=== PATIENT | female | born 1940 | race Two or more races ===

== ENCOUNTER 2024-12-12 10:19 | Inpatient (IN) | payer OTHER ==
[~2024-12-12] VITALS: Ht 147.3 cm; Wt 80.4 kg
--- NOTE | 2024-12-12 10:41 | ED.PDOC ---
History of Present Illness HPI Comments 84-year-old female with PMHx HTN, HLD, DM, Asthma brought in by EMS presents with a chief complaint of chest pain and SOB. Patient was at the [facility] seeing her doctor for follow-up on a bone density scan and had mentioned that she normally gets left sided chest pain once in awhile. EMS reports that the doctor panicked and called 911. Patient mentions that she feels exactly at her baseline and is not having chest pain at this time. Patient also reports that sometimes she gets abdomen pain from constipation. 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 History: Denies all ROOF PLUMBER Hx Family History Family History: Reviewed,noncontributory to illness Social History Smoker: Non-Smoker Alcohol: Denies ETOH Use Drugs: Denies Drug Use Lives In: Home Constitutional: denies: chills, diaphoresis, fatigue, fever, malaise, sweats, weakness, others EENTM: denies: blurred vision, double vision, ear bleeding, ear discharge, ear drainage, ear pain, ear ringing, eye pain, eye redness, hearing loss, mouth pain, mouth swelling, nasal discharge, nose bleeding, nose congestion, nose pain, photophobia, tearing, throat pain, throat swelling, voice changes, others Respiratory: reports: shortness of breath; denies: cough, hemoptysis, orthopnea, SOB at rest, SOB with excertion, stridor, wheezing, others Cardiovascular: reports: chest pain; denies: dizzy spells, diaphoresis, Dyspnea on exertion, edema, irregular heart beat, left arm pain, lightheadedness, palpitations, PND, syncope, others Gastrointestinal: reports: constipated; denies: abdomen distended, abdominal pain, blood streaked bowels, diarrhea, dysphagia, difficulty swallowing, hematemesis, melena, nausea, poor appetite, poor fluid intake, rectal bleeding, rectal pain, vomiting, others Genitourinary: denies: abnormal vagina bleeding, burning, dyspareunia, dysuria, flank pain, frequency, hematuria, incontinence, pain, , vagina discharge, urgency, others Neurological: denies: dizziness, fainting, headache, left sided numbness, left sided weakness, numbness, paresthesia, pre-existing deficit, right sided numbness, right sided weakness, seizure, speech problems, tingling, tremors, weakness, others Musculoskeletal: denies: back pain, gout, joint pain, joint swelling, muscle pain, muscle stiffness, neck pain, others Integumetry: denies: bruises, change in color, change in hair/nails, dryness, laceration, lesions, lumps, rash, wounds, others Allergic/Immunocompromised: denies: Difficulty Healing, Frequent Infections, Hives, Itching, others Hematologic/Lymphatic: denies: anemia, blood clots, easy bleeding, easy bruising, swollen glands, others Endocrine: denies: excessive hunger, excessive sweating, excessive thirst, excessive urination, flushing, intolerance to cold, intolerance to heat, unexplained weight gain, unexplained weight loss, others Psychiatric: denies: anxiety, bipolar disorder, depression, hopeless, panic disorder, schizophrenia, sleepless, suicidal, others All Other Systems: Reviewed and Negative Physical Exam General Appearance: Moderate Distress HEENT: Normal ENT Inspection, Pharynx Normal, TMs Normal Neck: Full Range of Motion, Non-Tender, Normal, Normal Inspection Respiratory: Chest Non-Tender, Decreased Breath Sounds, No Accessory Muscle Use, Wheezing Cardiovascular: No Edema, No JVD, No Murmur, No Gallop, Normal Peripheral Pulses, Regular Rate/Rhythm Breast Exam: Deferred Gastrointestinal: No Organomegaly, Non Tender, No Pulsatile Mass, Normal Bowel Sounds, Soft Genitalia: Deferred Pelvic: Deferred Rectal: Deferred Extremities: No calf tenderness, Normal capillary refill, Normal inspection, Normal range of motion, Non-tender, No pedal edema Musculoskeletal : Apperance: Normal Neurologic: Alert, flat bed knitter II-XII nml as Tested, No Motor Deficits, Normal Affect, Normal Mood, No Sensory Deficits Cerebellar Function: Normal Reflexes: Normal Skin: Dry, Normal Color, Warm Lymphatic: No Adenopathy Was a procedure done? Was a procedure done?: No EKG EKG : Pulse Rate (adult): 69 [place]: Normal Cardiac Rhythm: NSR Block: None ST: Nonsp Differential Dx Considerations may include: ACS, KS, generalized weakness, asthma, dehydration X-Ray, Labs, Meds, VS Vital Signs Date Time Temp Pulse Resp B/P (MAP) Pulse Ox O2 Delivery O2 Flow Rate FiO2 12/12/24 16:07 98.4 79 16 126/63 (84) 96 98.4 12/12/24 16:07 79 16 96 Room Air 12/12/24 14:01 69 12/12/24 13:58 80 12/12/24 11:54 89 12/12/24 10:56 18 95 Room Air* 0 21 12/12/24 10:45 Room Air* 0 21 12/12/24 10:20 69 12/12/24 10:19 98.2 92 18 138/88 (105) 100 98.2 Lab Test 12/12/24 14:04 12/12/24 12:00 12/12/24 10:45 Range/Units Troponin I High Sensitivity < 3 L 3 L < 3 L </=34 ng/L White Blood Count 8.1 4.4-10.8 10^3/uL Red Blood Count 4.32 4.0-5.20 10^6/uL Hemoglobin 12.3 12.2-16.2 g/dL Hematocrit 37.1 36.0-46.0 % Mean Corpuscular Volume 85.9 80.0-100.0 fL Mean Corpuscular Hemoglobin 28.5 28.0-32.0 pg Mean Corpuscular Hemoglobin Concent 33.2 32.0-36.0 g/dL Red Cell Distribution Width 16.0 H 11.8-14.3 % Platelet Count 341 140-450 10^3/uL Mean Platelet Volume 7.1 6.9-10.8 fL Neutrophils (%) (Auto) 64.7 37.0-80.0 % Lymphocytes (%) (Auto) 26.0 10.0-50.0 % Monocytes (%) (Auto) 5.7 0.0-12.0 % Eosinophils (%) (Auto) 2.5 0.0-7.0 % Basophils (%) (Auto) 1.1 0.0-2.0 % Neutrophils # (Auto) 5.3 1.6-8.6 10 ^3/uL Lymphocytes # (Auto) 2.1 0.4-5.4 10 ^3/uL Monocytes # (Auto) 0.5 0-1.3 10 ^3/uL Eosinophils # (Auto) 0.2 0-0.8 10 ^3/uL Basophils # (Auto) 0.1 0-0.2 10 ^3/uL Nucleated Red Blood Cells 0.0 % Sodium Level 140 136-145 mmol/L Potassium Level 3.6 3.5-5.1 mmol/L Chloride Level 106 98-107 mmol/L Carbon Dioxide Level 27 20-31 mmol/L Anion Gap 7 5-15 Blood Urea Nitrogen 22 9-23 mg/dL Creatinine 0.64 0.550-1.02 mg/dL Glomerular Filtration Rate Calc 88 >90 mL/min BUN/Creatinine Ratio 34.4 H 10.0-20.0 Serum Glucose 109 H 74-106 mg/dL Calcium Level 9.9 8.7-10.4 mg/dL B-Type Natriuretic Peptide 38.71 0-100 pg/mL Current Medications Medications (Trade) Dose Ordered Sig/Isaiah Route Start Time Stop Time Status Last Admin Methylprednisolone Sodium Succinate (Solu Medrol) 125 mg ONCE ONCE IV 12/12/24 10:45 12/12/24 10:46 DC 12/12/24 10:56 Ipratropium [place] (Atrovent Medneb) 1 mg ONCE ONCE [facility] 12/12/24 10:45 12/12/24 10:46 DC 12/12/24 10:56 Albuterol (Ventolin Medneb) 10 mg ONCE ONCE [facility] 12/12/24 10:45 12/12/24 10:46 DC 12/12/24 10:56 The patient was given a breathing treatment of albuterol and Atrovent for the wheezing. The patient does have a history of asthma The patient was also given Solu-Medrol 125 mg IV push The patient's BNP is within normal range. The patient's CBC is within normal range The chemistry panel is within normal range The troponin level x2 is negative At this time, we did contact [facility] authorization #[id number] We did speak to [facility] and they have now authorize the patient to be admitted to our facility We have discussed the findings with the patient and she is in agreement with the management A cardiology consult will be obtained. Images Reviewed?: Images reviewed and evaluated by me Time of 1ST Reevaluation: 11:02 Reevaluation 1ST: Unchanged Patient Education/Counseling: Diagnosis, Treatment, Prognosis Family Education/Counseling: No Family Present Departure 1 Departure Time of Disposition: 18:06 Impression: Primary Impression: Acute coronary syndrome Additional Impression: Asthma exacerbation Qualified Codes: J45.41 - Moderate persistent asthma with (acute) exacerbation Disposition: 09 ADMITTED INPATIENT Admit to: Tele Condition: Fair Critical Care Note Critical Care Time?: Yes (45 min-critical care time only) Stability Stability form required: Yes Unstable for transfer: Telemetry monitoring (Telemetry monitoring required), ED Physician Assesment Heart Score Heart Score: Heart Score Response (Comments) Value History Moderate Suspicious 1 EKG Repolarization Disturb 1 Age >65 2 Risk Factors >3 or Hx ASHD 2 Troponin Normal limit 0 Total 6 I personally scribed for FORD CAMEJO MD ([email or web address]) on 12/12/24 at 10:41. Electronically submitted by Shon Jean Baptiste [email or web address]). FORD CAMEJO MD December 12, 2024 10:41
[2024-12-12] MEDS: ASPirin 81 mg TAB PO ONE (10:54)
[2024-12-12] MEDS: IPRATROPIUM BROM 0.5 MG/2.5ML INH SOL HHN ONE (10:56)
[2024-12-12] MEDS: methylPREDNISolone SOD SUCC 125 MG/2 ML VL IV ONE (10:56)
[2024-12-12] MEDS: ALBUTEROL SULF 2.5 MG/0.5ML(0.5%) NEB SOLN HHN ONE (10:56)
[2024-12-12 11:02] LABS: Basophils # (auto) 0.1 10 ^3/uL (0-0.2); Basophils % (auto) 1.1 % (0.0-2.0); Eosinophils # (auto) 0.2 10 ^3/uL (0-0.8); Eosinophils % (auto) 2.5 % (0.0-7.0); Hematocrit 37.1 % (36.0-46.0); Hemoglobin 12.3 g/dL (12.2-16.2); Lymphocytes # (auto) 2.1 10 ^3/uL (0.4-5.4); Mean Corpuscular Hemoglobin 28.5 pg (28.0-32.0); Mean Corpuscular Hgb Conc. 33.2 g/dL (32.0-36.0); Mean Corpuscular Volume 85.9 fL (80.0-100.0); Monocytes # (auto) 0.5 10 ^3/uL (0-1.3); Monocytes % (auto) 5.7 % (0.0-12.0); Neutrophils # (auto) 5.3 10 ^3/uL (1.6-8.6); Neutrophils % (auto) 64.7 % (37.0-80.0); Platelet Count (auto) 341 10^3/uL (140-450); Red Blood Cells 4.32 10^6/uL (4.0-5.20); White Blood Cell 8.1 10^3/uL (4.4-10.8)
[2024-12-12 11:10] LABS: Chloride 106 mmol/L (98-107); Potassium 3.6 mmol/L (3.5-5.1); Sodium 140 mmol/L (136-145)
[2024-12-12 11:11] LABS: Anion Gap 7 (5-15); Carbon Dioxide 27 mmol/L (20-31)
[2024-12-12 11:12] LABS: Calcium 9.9 mg/dL (8.7-10.4)
[2024-12-12 11:16] LABS: BUN/Creatinine Ratio 34.4 (10.0-20.0); Blood Urea Nitrogen 22 mg/dL (9-23)
[2024-12-12 11:17] LABS: Glucose 109 mg/dL (74-106)
--- NOTE | 2024-12-12 13:31 | DVH ---
EXAM: XY CHEST TWO VIEWS ROUTINE CLINICAL HISTORY: CP COMPARISON: None TECHNIQUE: Frontal and lateral view of the chest was obtained FINDINGS: Lines and Tubes: None Lungs: No focal consolidation. Pleura: No effusion. No pneumothorax. Cardiomediastinal contours: Unremarkable. Atherosclerotic vascular calcifications of the thoracic ao rta are noted. Bones: No acute osseous abnormality. IMPRESSION: No acute cardiopulmonary disease.
[2024-12-12] MEDS ORDERED: NITROGLYCERIN 0.4 MG SL TAB SL PRN (18:45)
[2024-12-12] MEDS ORDERED: MORPHINE SULFATE INJ 2 MG/ml SYRG IV PRN (18:45)
--- NOTE | 2024-12-12 18:58 | ECG ---
[facility] Test Date: 2024-12-12 Test Time: 10:20:20 Pat Name: AILYN BROWN Department: ED Room: 0236T Gender: F Poly Operator: JEFF : 1940 Requested By: FORD CAMEJO Order Number: [id number] Reading MD: Lizandro Fulton Measurements Intervals [place] Rate: 69 P: 66 UT: 161 QRS: -39 QRSD: 100 T: 45 QT: 433 QTc: 464 Interpretive Statements Sinus rhythm Abnormal R-wave progression, early transition Left ventricular hypertrophy Electronically Signed On 12-16-2024 22:03:40 PDT by Lizandro Fulton Please click the below link to view image of tracing.
--- NOTE | 2024-12-12 19:00 | ECG ---
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
--- NOTE | 2024-12-12 19:18 | DVHHPRES ---
History of Present Illness Resident Creating Document: ANTONYGILBERTOJASON RESIDENT History of Present Illness Patient is a 84-year-old female with a past medical history of asthma, hypertension, hyperlipidemia, recently diagnosed with a osteopenia, overactive bladder who presented to the ED from PCP's office where she had an episode of chest pain. Patient reported the chest pain was left upper side, dull, moderate in intensity, no radiation occurred at rest, no aggravating factors and got relieved on its own. Patient reports that she has a been having episodes of similar chest pain in the last 2-3 months which gets relieved on its own. Patient also reported feeling slightly short of breath but does not report any fever, chills, increase in sputum production or change in the color of the sputum. Past medical history: asthma, hypertension, hyperlipidemia, recently diagnosed with a osteopenia, overactive bladder Surgical history: Cholecystectomy in 2022 Social history: Patient lives with her son and denies smoking, alcohol, drug use Home medications: Losartan/hydrochlorothiazide 50/12.5 mg, lovastatin 40 mg, inhalers Breyna, rescue inhaler albuterol, trospium chloride for overactive bladder Review of Systems Review of Systems Patient currently denied any chest pain Has point tenderness in the left upper chest Reports mild shortness of breath and cough Abdominal pain, dysuria, fever, chills Allergies: Coded Allergies: Lisinopril (Verified Allergy, Severe, 12/12/24) Sulfa Antibiotics (Verified Allergy, Severe, 12/12/24) Exam Vital Signs Vital Signs Date Time Temp Pulse Resp B/P (MAP) Pulse Ox O2 Delivery O2 Flow Rate FiO2 12/12/24 18:26 97.6 74 16 134/74 (94) 99 97.6 12/12/24 16:07 Room Air 12/12/24 10:56 0 21 Exam Gen - no pallor, no icterus, no cyanosis, no clubbing, no LAD, no edema . Skin - Patients skin is warm and dry. HEENT - normocephalic, atraumatic, moist mucous membranes. Neck - full ROM, no LAD, no JVD Pulmonary - B/L equal breath sounds with mild diffuse wheezing, no rales, no stridor. cardiovascular - regular S1,S2 heard, no added sounds, no murmurs heard. peripheral pulses normal radial 2+, pedal 2+. capillary refill normal <2 secs. GI - soft, nontender abdomen. no hepatospleenomegaly. Bowel sounds normoactive Neurological - Patient is A/O X 3 . Bilateral upper extremity strength 5/5, bilateral lower extremity strength 5/5, no facial droop, normal speech, no tremor, no sensory deficiets. Labs/Xrays Labs Test 12/12/24 14:04 12/12/24 10:45 Range/Units Troponin I High Sensitivity < 3 L </=34 ng/L White Blood Count 8.1 4.4-10.8 10^3/uL Red Blood Count 4.32 4.0-5.20 10^6/uL Hemoglobin 12.3 12.2-16.2 g/dL Hematocrit 37.1 36.0-46.0 % Mean Corpuscular Volume 85.9 80.0-100.0 fL Mean Corpuscular Hemoglobin 28.5 28.0-32.0 pg Mean Corpuscular Hemoglobin Concent 33.2 32.0-36.0 g/dL Red Cell Distribution Width 16.0 H 11.8-14.3 % Platelet Count 341 140-450 10^3/uL Mean Platelet Volume 7.1 6.9-10.8 fL Neutrophils (%) (Auto) 64.7 37.0-80.0 % Lymphocytes (%) (Auto) 26.0 10.0-50.0 % Monocytes (%) (Auto) 5.7 0.0-12.0 % Eosinophils (%) (Auto) 2.5 0.0-7.0 % Basophils (%) (Auto) 1.1 0.0-2.0 % Neutrophils # (Auto) 5.3 1.6-8.6 10 ^3/uL Lymphocytes # (Auto) 2.1 0.4-5.4 10 ^3/uL Monocytes # (Auto) 0.5 0-1.3 10 ^3/uL Eosinophils # (Auto) 0.2 0-0.8 10 ^3/uL Basophils # (Auto) 0.1 0-0.2 10 ^3/uL Nucleated Red Blood Cells 0.0 % Sodium Level 140 136-145 mmol/L Potassium Level 3.6 3.5-5.1 mmol/L Chloride Level 106 98-107 mmol/L Carbon Dioxide Level 27 20-31 mmol/L Anion Gap 7 5-15 Blood Urea Nitrogen 22 9-23 mg/dL Creatinine 0.64 0.550-1.02 mg/dL Glomerular Filtration Rate Calc 88 >90 mL/min BUN/Creatinine Ratio 34.4 H 10.0-20.0 Serum Glucose 109 H 74-106 mg/dL Calcium Level 9.9 8.7-10.4 mg/dL B-Type Natriuretic Peptide 38.71 0-100 pg/mL Assessment/Plan Assessment/Plan Acute chest pain, rule out ACS Hypertensive heart disease with ? Diastolic heart Failure - EKG showed sinus rhythm with LVH criteria, T-wave inversion in V1 - troponin within normal limits - aspirin, atorvastatin - losartan 50 mg - echocardiogram pending - lipid panel and HbA1c pending Possible asthma exacerbation History of asthma - methylprednisolone 40 mg daily - DuoNebs q.8 hours - COVID and influenza pending Recently diagnosed osteopenia - vitamin-D levels pending PUD prophylaxis: Famotidine DVT prophylaxis: Enoxaparin Goals of care discussed with the patient and her son Noah and his for over 2 6 minutes. Full code Time Spent: 43 minutes Plan discussed with Dr. Ford Plan discussed with: Patient, Son My Orders Orders - DEYSI HARDY RESIDENT Procedure Category Date Status Time Admit ADMIT 12/12/24 Verified 18:44 Nitroglycerin [facility] 12/12/24 Verified Sublingual (Ntrostat 18:45 Morphine Sulfate [facility] 12/12/24 Verified Injection 18:45 Oxygen By Nasal RT 12/12/24 Verified Cannula 18:44 Stat Ekg For Chest [facility] 12/12/24 Verified Pain 18:44 Notify Md Of Changes [facility] 12/12/24 Verified From Base 18:44 Welcome Desk Agent For [facility] 12/12/24 Verified 24 Hours 18:44 Emergency Dysrhythmia [facility] 12/12/24 Verified Protocol 18:44 Rhythm Strips Once [facility] 12/12/24 Verified Every Shift 18:44 Echo 2d Mode Cardiac US 12/12/24 Verified DOP 18:44 Urinalysis LAB 12/12/24 Verified 18:44 Drug Screen LAB 12/12/24 Verified 18:44 Covid19 Antigen [place] [facility] 12/12/24 Verified Rapid Influenza A&B LAB 12/12/24 Verified 18:44 Aspirin Tablet [facility] 12/13/24 Verified 10:00 Atorvastatin (Lipitor) [facility] 12/12/24 Verified 22:00 Lipid Panel LAB 12/12/24 Verified 18:44 Hemoglobin A1c LAB 12/12/24 Verified 18:44 Losartan Tablet [facility] 12/13/24 Verified (Cozaar Tablet) 10:00 Albuterol Medneb [facility] 12/12/24 Verified (Ventolin Medneb) 22:00 Ipratropium Medneb [facility] 12/12/24 Verified (Atrovent Medneb) 22:00 Methylprednisolone [facility] 12/13/24 Verified Sod Succ (Solu Medrol 10:00 Date of Service: December 12, 2024 Billing Provider: KELLY FORD MD [facility] RESIDENT December 12, 2024 19:18
[2024-12-12 19:20] VITALS: BP 134/74; PULSE 78; RESP 18; TEMP 97.6; O2SAT 98
[2024-12-12 19:22] LABS: Cholesterol 191 mg/dL (< 200); HDL Cholesterol 59 mg/dL (40-59); LDL Cholesterol 108 mg/dL (< 100); Triglycerides 162 mg/dL (< 150)
[2024-12-12 21:22] LABS: Rapid Influenza A Negative (Negative); Rapid Influenza B Negative (Negative)
[2024-12-12 21:23] LABS: COVID19 ANTIGEN SOFIA FIA NEGATIVE (NEGATIVE)
[2024-12-12 22:06] VITALS: PULSE 84; RESP 18; O2SAT 97
[2024-12-12 22:10] VITALS: BP 139/68; PULSE 84; RESP 18; TEMP 98.5; O2SAT 97
[2024-12-12] MEDS: ATORVASTATIN 20 MG TAB PO SCH (22:36)
[2024-12-12 22:37] VITALS: PULSE 73; RESP 18; O2SAT 95
[2024-12-12] MEDS: ALBUTEROL SULF 2.5 MG/0.5ML(0.5%) NEB SOLN NEB SCH (22:37)
[2024-12-12] MEDS: IPRATROPIUM BROM 0.5 MG/2.5ML INH SOL NEB SCH (22:38)
[2024-12-12 22:43] VITALS: PULSE 75; RESP 16; O2SAT 100
[2024-12-13] VITALS (15 sets, daily range): BP systolic 110–131; BP diastolic 55–69; PULSE 53–98; RESP 16–18; TEMP 97–99.5; O2SAT 18–99
[2024-12-13] MEDS ORDERED: BUDE1AER15 IN (00:46)
[2024-12-13] MEDS ORDERED: ASPI-543 PO (00:46)
[2024-12-13] MEDS ORDERED: MELO7.5T7 PO (00:46)
[2024-12-13] MEDS ORDERED: PANT40TA2 PO (00:46)
[2024-12-13] MEDS ORDERED: LOVA40TA72 PO (00:46)
[2024-12-13] MEDS ORDERED: ALBU1NEB5 IN (00:46)
[2024-12-13] MEDS ORDERED: TROS20TA3 PO (00:46)
[2024-12-13] MEDS: ACETAMINOPHEN 325 MG TAB PO PRN (01:27)
[2024-12-13 06:41] LABS: Urine Bacteria None Seen /hpf (None Seen)
[2024-12-13 07:04] LABS: Urine Blood Negative /uL (Negative); Urine Clarity Clear (Clear); Urine Color Light-Yellow (Yellow); Urine Protein, UAD Negative (Negative); Urine Specific Gravity 1.016 (1.001-1.035); Urine Squamous Epithelial Cell None Seen /hpf (<5); Urine Urobilinogen Normal (Negative); Urine WBC < 1 /HPF (0-5); Urine pH 5.5 (5.0-9.0)
[2024-12-13 07:10] LABS: Amphetamine Screen, Urine Neg (NEGATIVE); Barbiturate Scree,Urine Neg (NEGATIVE); Benzodiazephine Screen, Urine Neg (NEGATIVE); Cannabinoid Screen, Urine Neg (NEGATIVE); Cocaine Screen, Urine Neg (NEGATIVE); Opiate Scree,Urine Neg (NEGATIVE); Phencyclidine Screen, Urine Neg (NEGATIVE)
[2024-12-13 08:39] LABS: Basophils # (auto) 0 10 ^3/uL (0-0.2); Basophils % (auto) 0.2 % (0.0-2.0); Eosinophils # (auto) 0 10 ^3/uL (0-0.8); Hemoglobin 12.1 g/dL (12.2-16.2); Lymphocytes # (auto) 1.7 10 ^3/uL (0.4-5.4); Lymphocytes % (auto) 20.4 % (10.0-50.0); Mean Corpuscular Hemoglobin 29.1 pg (28.0-32.0); Mean Corpuscular Hgb Conc. 33.5 g/dL (32.0-36.0); Monocytes # (auto) 0.5 10 ^3/uL (0-1.3); Monocytes % (auto) 6.1 % (0.0-12.0); Neutrophils # (auto) 6.1 10 ^3/uL (1.6-8.6); Neutrophils % (auto) 73.3 % (37.0-80.0); Platelet Count (auto) 322 10^3/uL (140-450); Red Blood Cells 4.14 10^6/uL (4.0-5.20); Red Cell Distribution Width 15.7 % (11.8-14.3); White Blood Cell 8.3 10^3/uL (4.4-10.8)
[2024-12-13 08:50] LABS: Anion Gap 10 (5-15); Carbon Dioxide 24 mmol/L (20-31); Potassium 3.6 mmol/L (3.5-5.1); Sodium 142 mmol/L (136-145)
[2024-12-13 08:54] LABS: Chloride 108 mmol/L (98-107)
[2024-12-13 08:56] LABS: BUN/Creatinine Ratio 25.9 (10.0-20.0); Blood Urea Nitrogen 15 mg/dL (9-23)
[2024-12-13 09:00] LABS: Glucose 125 mg/dL (74-106)
[2024-12-13] MEDS: LOSARTAN POTASSIUM 50 MG TAB PO SCH (10:00)
--- NOTE | 2024-12-13 10:26 | DVHPN2 ---
Progress Note Date Seen: December 13, 2024 Medical Necessity Reason Pt with a Central, PICC or Fol: No Subjective Patient reports: No new complaints Review of Systems: HEENT:Normal, CVS:Normal, RESPIRATORY:Normal, GI:Normal, :Normal, MSK:Normal, NEURO:Normal Objective vital signs Vital Sign Date Time Temp Pulse Resp B/P (MAP) Pulse Ox O2 Delivery O2 Flow Rate FiO2 12/13/24 09:00 97.0 70 18 124/67 (86) 18 97.0 12/13/24 08:00 Room Air* 0 21 Total Intake and Output 12/12/24 12/12/24 12/13/24 15:00 23:00 07:00 Intake Total 240 ml Balance 240 ml medications Current Medications Medications Dose Ordered Sig/Isaiah Route Start Time Stop Time Status Last Admin Dose Admin Nitroglycerin 0.4 mg Q5MINP PRN SL 12/12/24 18:45 Morphine Sulfate 2 mg Q30M PRN IV 12/12/24 18:45 Aspirin 81 mg DAILY PO 12/13/24 10:00 Atorvastatin Calcium 40 mg HS PO 12/12/24 22:00 12/12/24 22:36 40 MG Losartan Potassium 50 mg DAILY PO 12/13/24 10:00 Albuterol 2.5 mg Q8HR NEB 12/12/24 22:00 12/13/24 07:41 2.5 MG Ipratropium [place] 0.5 mg Q8HR NEB 12/12/24 22:00 12/13/24 07:41 0.5 MG Methylprednisolone Sodium Succinate 40 mg DAILY IV 12/13/24 10:00 Famotidine 20 mg DAILY PO 12/13/24 10:00 Enoxaparin Sodium 40 mg DAILY SC 12/13/24 10:00 Acetaminophen 650 mg Q6HP PRN PO 12/13/24 01:15 12/13/24 01:27 650 MG Examination: GENERAL:Normal, HEENT:Normal, NECK:Normal, LUNGS:Normal, CVS:Normal, ABDOMEN:Normal, MSK:Normal, SKIN:Normal, NEURO:Normal, :Normal laboratory and microbiology Laboratory Tests 12/13/24 08:12 Test 12/13/24 08:12 Range/Units Serum Glucose 125 H 74-106 mg/dL Problem List/Assessment/Plan Problem List/Assessment/Plan #1 chest pain ?cad: cardio eval, echo #2 asthma with exacerbation : iv steroids #3 ?pneumonia- gram positive/neg: zithromax #4 htn #5 hyperlipidemia #6 obesity advance care planning- full code- time spent 18 mins Plan discussed with: Patient, Son Date of Service: December 13, 2024 Billing Provider: MARC RILEY MD Common Visit Codes: [id number] INP/OBS CARE(HIGH) Secondary Visit Codes: 53625-[id number] CARE PLAN 30 MINUTES MARC RILEY MD December 13, 2024 10:26
[2024-12-13] MEDS: methylPREDNISolone SOD SUCC 40 MG/ML VL IV SCH (10:50)
[2024-12-13] MEDS: FAMOTIDINE 20 MG TAB PO SCH (10:51)
[2024-12-13] MEDS: ENOXAPARIN SOD 40 MG/0.4 ML SYRINGE SC SCH (10:51)
[2024-12-13] MEDS: ASPirin 81 mg TAB PO SCH (10:51)
[2024-12-13] MEDS: AZITHROMYCIN 250 MG TAB PO ONE (11:32)
[2024-12-13] MEDS: ALBUTEROL SULF 2.5 MG/0.5ML(0.5%) NEB SOLN NEB SCH (11:51)
[2024-12-13] MEDS: IPRATROPIUM BROM 0.5 MG/2.5ML INH SOL NEB SCH (11:51)
--- NOTE | 2024-12-13 13:41 | DVHINCON2 ---
Date Seen: December 13, 2024 Referring Physician MD Jennifer Reason for Consultation Chest pain History of Present Illness This is an 84-year-old female patient who presents to the emergency room for chest pain and shortness of breath for one year. The patient reports that she was seeing her new primary care physician at [facility] prior to emergency room arrival. The patient states that she explained her symptoms to her primary doctor who then referred her to come to the emergency room for further evaluation. She describes the chest pain as unprovoked, intermittent, sharp in nature, left-sided and nonradiating. Associated symptoms include shortness of breath. Initial twelve lead electrocardiogram reveals normal sinus rhythm with Q-waves seen in anterolateral leads. Serial troponin levels have been negative. Significant past medical history includes hypertension, dyslipidemia, asthma, osteoporosis, osteoarthritis, and GERD. The patient states that she underwent a stress test over 20 years ago and has not seen a senior oracle adf developer since. She also reports significant family history including her father and paternal uncles X4, all with previous myocardial infarctions. Past Medical History Past medical history reviewed. No other significant than mentioned above. Past Surgical History Cholecystectomy Appendectomy Tonsillectomy Right rotator cuff repair Family History: Relation not specified for: Alzheimer's disease Ischemic heart disease Family History Family history reviewed. Social History Patient denies any tobacco or nicotine use Denies any drug use States she drinks approximately one glass of wine per week Allergies: Coded Allergies: Lisinopril (Verified Allergy, Severe, 12/12/24) Sulfa Antibiotics (Verified Allergy, Severe, 12/12/24) Home Meds Reported Medications Meloxicam (Meloxicam) 7.5 Mg Tab, 1 TAB PO DAILY, #30 TAB 2 Refills 12/13/24 Trospium Chloride (Trospium Chloride) 20 Mg Tab, 20 MG PO DAILY, TAB 12/13/24 Lovastatin (Lovastatin) 40 Mg Tab, 1 TAB PO DAILY, #30 TAB 5 Refills 12/13/24 Budesonide-Formoterol Fumarate (Breyna 80-4.5 Mcg/Act) 1 Aer Aer, 1 AER IN, AER 12/13/24 Albuterol Sulfate (Albuterol Sulfate (5 mg/ml) 0.5%) 1 Neb Neb, 1 NEB IN, INH 12/13/24 Pantoprazole Sodium Sesquihydr (Protonix) 40 Mg Tab, 40 MG PO DAILY, #30 TAB 12/13/24 Aspirin (Aspir-Low) 81 Mg Tab, 81 MG PO DAILY for 30 Days, MG 12/13/24 Home Meds Home medications reviewed. Current Medications Current Medications Medications (Trade) Dose Ordered Sig/Isaiah Route PRN Reason Start Time Stop Time Status Last Admin Nitroglycerin (Ntrostat Sublingual) 0.4 mg Q5MINP PRN SL FOR CHEST PAIN 12/12/24 18:45 Morphine Sulfate 2 mg Q30M PRN IV FOR CHEST PAIN 12/12/24 18:45 Aspirin 81 mg DAILY PO 12/13/24 10:00 12/13/24 10:51 Atorvastatin Calcium (Lipitor) 40 mg HS PO 12/12/24 22:00 12/12/24 22:36 Losartan Potassium (Cozaar Tablet) 50 mg DAILY PO 12/13/24 10:00 Albuterol (Ventolin Medneb) 2.5 mg Q8HR [facility] 12/12/24 22:00 12/13/24 10:24 DC 12/13/24 07:41 Ipratropium [place] (Atrovent Medneb) 0.5 mg Q8HR NEB 12/12/24 22:00 12/13/24 10:24 DC 12/13/24 07:41 Methylprednisolone Sodium Succinate (Solu Medrol) 40 mg DAILY IV 12/13/24 10:00 12/13/24 10:50 Famotidine (Pepcid Tablet) 20 mg DAILY PO 12/13/24 10:00 12/13/24 10:51 Enoxaparin Sodium (Lovenox) 40 mg DAILY SC 12/13/24 10:00 12/13/24 10:51 Acetaminophen (Tylenol Tablet) 650 mg Q6HP PRN PO MILD PAIN (1-3 PAIN SCALE) 12/13/24 01:15 12/13/24 01:27 Albuterol (Ventolin Medneb) 2.5 mg Q6HWA NEB 12/13/24 12:00 12/13/24 11:51 Ipratropium [place] (Atrovent Medneb) 0.5 mg Q6HWA NEB 12/13/24 12:00 12/13/24 11:51 Azithromycin (Zithromax Tablet) 500 mg DAILY PO 12/14/24 10:00 Review of Systems Constitutional: No symptom reported Ears, Nose, & Throat: No symptom reported Eyes: No symptom reported Neurological: No symptoms reported Pulmonary/Respiratory: Shortness of breath Cardiovascular: Chest pain Gastrointestinal: No symptom reported Genitourinary: No symptom reported Musculoskeletal: No symptom reported Skin: No symptom reported Psychiatric: No symptom reported Endocrine: No symptom reported Hematologic/Lymphatic: No symptom reported Vital Signs Vital Signs Date Time Temp Pulse Resp B/P (MAP) Pulse Ox O2 Delivery O2 Flow Rate FiO2 12/13/24 11:57 53 18 99 12/13/24 10:00 Room Air* 0 21 12/13/24 10:00 124/67 12/13/24 09:00 97.0 97.0 Physical Exam General Appearance: Cooperative. Obese Pulmonary/Respiratory: Clear, bilateral breaths sounds. Cardiovascular/Chest: Regular rate and rhythm. Peripheral Pulses: 2+ Radial (R). 2+ Radial (L). 2+ Pedal (R). 2+ Pedal (L) Abdominal Exam: Normal bowel sounds. Ankle Exam: Negative ankle edema Lower extremities: Negative lower extremity edema Neuro/Mental Status: A/OX4, coherent. Thoughts/Psych: Normal thought pattern. Appropriate mood and affect. Good judgment and insight. Appearance: No acute distress. Skin Exam: Normal inspection. Normal color. Warm and dry. Labs/Diagnostic Data Labs Test 12/13/24 08:12 12/12/24 23:00 12/12/24 20:39 12/12/24 14:04 Range/Units White Blood Count 8.3 4.4-10.8 10^3/uL Red Blood Count 4.14 4.0-5.20 10^6/uL Hemoglobin 12.1 L 12.2-16.2 g/dL Hematocrit 36.0 36.0-46.0 % Mean Corpuscular Volume 87.0 80.0-100.0 fL Mean Corpuscular Hemoglobin 29.1 28.0-32.0 pg Mean Corpuscular Hemoglobin Concent 33.5 32.0-36.0 g/dL Red Cell Distribution Width 15.7 H 11.8-14.3 % Platelet Count 322 140-450 10^3/uL Mean Platelet Volume 7.2 6.9-10.8 fL Neutrophils (%) (Auto) 73.3 37.0-80.0 % Lymphocytes (%) (Auto) 20.4 10.0-50.0 % Monocytes (%) (Auto) 6.1 0.0-12.0 % Eosinophils (%) (Auto) 0.0 0.0-7.0 % Basophils (%) (Auto) 0.2 0.0-2.0 % Neutrophils # (Auto) 6.1 1.6-8.6 10 ^3/uL Lymphocytes # (Auto) 1.7 0.4-5.4 10 ^3/uL Monocytes # (Auto) 0.5 0-1.3 10 ^3/uL Eosinophils # (Auto) 0 0-0.8 10 ^3/uL Basophils # (Auto) 0 0-0.2 10 ^3/uL Nucleated Red Blood Cells 0.0 % Sodium Level 142 136-145 mmol/L Potassium Level 3.6 3.5-5.1 mmol/L Chloride Level 108 H 98-107 mmol/L Carbon Dioxide Level 24 20-31 mmol/L Anion Gap 10 5-15 Blood Urea Nitrogen 15 9-23 mg/dL Creatinine 0.58 0.550-1.02 mg/dL Glomerular Filtration Rate Calc 90 >90 mL/min BUN/Creatinine Ratio 25.9 H 10.0-20.0 Serum Glucose 125 H 74-106 mg/dL Calcium Level 10.0 8.7-10.4 mg/dL Urine Color Light-yellow Yellow Urine Clarity Clear Clear Urine pH 5.5 5.0-9.0 Urine Specific [place] 1.016 1.001-1.035 Urine Protein Negative Negative Urine Ketones Negative Negative Urine Blood Negative Negative /uL Urine Nitrite Negative Negative Urine Bilirubin Negative Negative Urine Urobilinogen Normal Negative mg/dL Urine Leukocyte Esterase Negative Negative /uL Urine RBC 1 0 - 4 /hpf Urine Microscopic WBC < 1 0-5 /HPF Urine Squamous Epithelial Cells None seen <5 /hpf Urine Bacteria None seen None Seen /hpf Urine Glucose 3+ H Normal mg/dL Urine Opiates Screen Neg NEGATIVE Urine Fentanyl Screen Neg NEGATIVE Urine Barbiturates Screen Neg NEGATIVE Urine Phencyclidine Screen Neg NEGATIVE Urine Amphetamines Screen Neg NEGATIVE Urine Benzodiazepines Screen Neg NEGATIVE Urine Cocaine Screen Neg NEGATIVE Urine Cannabinoids Screen Neg NEGATIVE Influenza Type A Antigen Negative Negative Influenza Type B Antigen Negative Negative SARS-CoV-2 Antigen (Rapid) Negative NEGATIVE Troponin I High Sensitivity < 3 L </=34 ng/L Test 12/12/24 10:45 Range/Units Hemoglobin A1c 5.8 H <5.7 % A1C B-Type Natriuretic Peptide 38.71 0-100 pg/mL Triglycerides Level 162 H < 150 mg/dL Cholesterol Level 191 < 200 mg/dL LDL Cholesterol 108 H < 100 mg/dL HDL Cholesterol 59 40-59 mg/dL Vitamin D 25-Hydroxy 78.6 30.0-100 ng/mL Assessment Chest pain, rule out coronary ischemia Rule out structural heart disease Hypertension Dyslipidemia Asthma Osteoarthritis Osteoporosis Plan/Recommendation We will continue with the following plan/recommendations (Dr. Fulton): * Obtain transthoracic echocardiogram to evaluate cardiac function * Chest pain protocol * HEART score: 6 points (moderate score) * Blood pressure control * Lipid-lowering agent * Close Cardiac surveillance * Nuclear stress test Given the patient's clinical presentation and elevated HEART score, the patient was offered a nuclear stress test. Patient is agreeable. We will schedule the patient at first availability. In the meantime, continue with single antiplatelet therapy and lipid-lowering agent. Close Cardiac surveillance, notify cardiology team immediately for any ECG changes. Thank you for allowing us to care for this patient. Please call with any questions or concerns. Critical care time spent: 41 minutes This medical document was created using an electronic medical record system with voice recognition software and computerized dictation system. Although this document has been carefully reviewed, there might still be some phonetic and typographical errors. Occasional wrong-word or ``sound-alike substitutions may have occurred due to the inherent limitations of voice recognition software. These areas are purely typographical due to imperfections of the software programs and do not reflect any compromise in the patient's medical care. Please read the chart carefully and recognize, using context, where these substitutions have occurred. Plan discussed with: Patient NYHA Physical activity limitations: NA Date of Service: December 13, 2024 Billing Provider: JOHNNIE SALAZAR Cardiology Common Codes: [id number] INP/OBS CARE (High) Cardiology Consultation Codes: [id number] CONSULT <45MIN JOHNNIE SALAZAR December 13, 2024 13:41
[2024-12-14] VITALS (15 sets, daily range): BP systolic 122–146; BP diastolic 60–72; PULSE 65–88; RESP 16–19; TEMP 96.5–97.7; O2SAT 92–100
[2024-12-14] MEDS: REGADENOSON 0.4 MG/5 ML SYRG IV ONE ×2 (09:31)
[2024-12-14] MEDS: AZITHROMYCIN 250 MG TAB PO SCH (09:48)
--- NOTE | 2024-12-14 17:50 | DVHSR ---
APPROVED REPORT Exam: Nuclear Stress Test Indication: Chest pain BMI: 0 Medical History Medical History: HTN, Hyperlipidemia, Asthma. Vertigo Allergies: Sulfa, Lisinopril Stress Test Details Stress Test: Pharmacologic stress testing performed using 0.4 mg of regadenoson per 5 mL given IV ov er 10 seconds. Atropine may be administered at 0.5mg increments (to a maximum of 2mg) to achieve the designated ta rget heart rate, mg was utilized. HR Resting HR: 62 bpmMax Heart Rate (APMHR): 138.201455 bpm Max HR Achieved: 94 bpmTarget HR (85% APMHR): 117.749552 bpm % of APMHR: 68.12 Recovery HR: 82 bpm BP Resting BP: 128/61 mmHg Recovery BP: 122/60 mmHg ECG Resting ECG: Sinus Rhythm Clinical Reason for Termination: Completed protocol Nurse Comments Recieved pt. from [facility]. A/Ox4 on RA. 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 PIV flushes well. Reviewed POC. Pt. verbalized understanding of procedure including risks and side ef fects, agrees for stress testing. Lexiscan stress test performed per protocol. [email or web address] administered Cardiolite. Pt. tolerated well . Pt. stable, no change on exam. VS returned to baseline. Transferred to [facility] via wheelchair w/ te ch. Stress ECG Conclusion lvef 65% GI artifact noted, inferior wall defect no major ischemia noted NM EXAM: Myocardial Perfusion REST/STRESS Imaging Protocol: Rest Tc-99m/Stress Tc-99m 1 day Resting Data Rest SPECT myocardial perfusion imaging was performed in supine position 45 minutes following the int ravenous injection of 12.0 mCi of Tc-99m Sestamibi. Time of rest injection: 08:00 Date: 12/14/2024 Time of rest imagin:00 Date: 12/14/2024 Administration Route: IV Administration Site: Left Arm Pharmacologic Stress Pharmacologic stress test was performed by injecting Regadenoson 0.4 mg IV push followed by the intra venous injection of 33.4 mCi of Tc-99m Sestamibi. Time of stress injection: 09:15 Date: 12/14/2024 Time of stress imagin:00 Date: 12/14/2024 Administration Route: IV Administration Site: Left Arm Gated Stress SPECT was performed 45 minutes after stress injection. The images were gated to evaluate regional wall motion and calculate left ventricular ejection fracti on. Stress only was performed in the Supine position. Nuclear Conclusion Nuclear Findings: negative for ischemia lvef 65% GI artifact noted, inferior wall defect no major ischemia noted
--- NOTE | 2024-12-14 19:06 | DVHPN2 ---
Subjective No chest pain Changes from previous H/P or p: No Changes Objective Vitals Vital Signs Date Time Temp Pulse Resp B/P (MAP) Pulse Ox O2 Delivery O2 Flow Rate FiO2 12/14/24 19:03 72 16 99 12/14/24 18:54 Room Air 0.0 12/14/24 18:54 21 12/14/24 16:45 97.0 130/67 (88) 97.0 Intake/Output Intake and Output 12/14/24 07:00 Intake Total 1640 ml Balance 1640 ml Intake Oral 1640 ml # Voids 7 # Bowel Movements 1 General Appearance: Alert, Oriented X3 Lungs: Clear to auscultation Cardiovascular: Regular rate, Normal S1, Normal S2 Medications Current Medications Medications Dose Ordered Sig/Isaiah Route Start Time Stop Time Status Last Admin Dose Admin Nitroglycerin 0.4 mg Q5MINP PRN SL 12/12/24 18:45 Morphine Sulfate 2 mg Q30M PRN IV 12/12/24 18:45 Aspirin 81 mg DAILY PO 12/13/24 10:00 12/13/24 10:51 81 MG Atorvastatin Calcium 40 mg HS PO 12/12/24 22:00 12/13/24 19:59 40 MG Losartan Potassium 50 mg DAILY PO 12/13/24 10:00 Methylprednisolone Sodium Succinate 40 mg DAILY IV 12/13/24 10:00 12/13/24 10:50 40 MG Famotidine 20 mg DAILY PO 12/13/24 10:00 12/13/24 10:51 20 MG Enoxaparin Sodium 40 mg DAILY SC 12/13/24 10:00 12/13/24 10:51 40 MG Acetaminophen 650 mg Q6HP PRN PO 12/13/24 01:15 12/14/24 11:34 650 MG Albuterol 2.5 mg Q6HWA NEB 12/13/24 12:00 12/14/24 18:57 2.5 MG Ipratropium [place] 0.5 mg Q6HWA NEB 12/13/24 12:00 12/14/24 18:57 0.5 MG Azithromycin 500 mg DAILY PO 12/14/24 10:00 Laboratory Results Laboratory Tests 12/13/24 08:12 Urinalysis Test 12/12/24 23:00 Urine Color Light-yellow (Yellow) Urine Clarity Clear (Clear) Urine pH 5.5 (5.0-9.0) Urine Specific [place] 1.016 (1.001-1.035) Urine Protein Negative (Negative) Urine Ketones Negative (Negative) Urine Blood Negative /uL (Negative) Urine Nitrite Negative (Negative) Urine Bilirubin Negative (Negative) Urine Urobilinogen Normal mg/dL (Negative) Urine Leukocyte Esterase Negative /uL (Negative) Urine RBC 1 /hpf (0 - 4) Urine Microscopic WBC < 1 /HPF (0-5) Urine Squamous Epithelial Cells None seen /hpf (<5) Urine Bacteria None seen /hpf (None Seen) Urine Glucose 3+ mg/dL (Normal) H Assessment/Plan Assessment/Plan #1 chest pain ?cad: cardio eval, echo, pending stress test #2 asthma with exacerbation : iv steroids #3 ?pneumonia- gram positive/neg: zithromax #4 htn #5 hyperlipidemia #6 obesity Plan discussed with: Patient Date of Service: December 14, 2024 Billing Provider: FITO GUEVARA MD Common Visit Codes: [id number] INP/OBS CARE(HIGH) FITO GUEVARA MD December 14, 2024 19:06
[2024-12-15] VITALS (10 sets, daily range): BP systolic 120–154; BP diastolic 62–73; PULSE 65–81; RESP 16–18; TEMP 96.4–97.8; O2SAT 96–100
--- NOTE | 2024-12-15 15:05 | DVHSR ---
APPROVED REPORT EXAM: Two-dimensional and M-mode echocardiogram with Doppler and color Doppler. Blood Pressure: 131/69 mmHg INDICATION Chest Pain Hypertension RISK FACTORS Height: 50, Weight: 166 DIMENSIONS LVDd (3.8-5.7cm)LA (2D)4.2 (1.9-4.0cm)Aortic Root (2.0-3.7cm) EF (%) 72.0 (55-70%)Rt. Atrium3.8 (1.9-4.0cm)Asc. Aorta cm Mitral Valve MitralMitral Stenosis E wave1.03m/sMV Mean GR.mmHg A wave1.22m/sMV Peak GR.108mmHg E/A ratio0.82D MVAcm2 DECEL [id number] 1/2 [id number] IVRTmsDop MVA4.87cm2 Aortic Valve Aortic ValveAortic Stenosis V11.46m/Heavenly Mean GR.9mmHg V22.25m/Heavenly Peak GR.20mmHg LVOT Diameter1.7 (1.8-2.4cm)Doppler AVA1.47cm2 Tricuspid Valve TR Velocity2.83m/s [id number] Other Information Technically limited study due to body habitus, patient position and patient sensitve to touch. Conclusion lvef 65% normal rv function, rv enlarged left atrium enlarged no severe valve abnormalities noted
== END 2024-12-15 13:53 | disposition home or self-care (01) | DRG 302 ==
LOC: ER 10:19 → EDBD 10:19 → OVERFLOW 18:44 → TELE-EAST 22:06
PROVIDERS: ADMIT Hospitalist; ATTEND Hospitalist
DX: I25.10 Atherosclerotic heart disease of native coronary artery without angina pectoris (principal); J15.69 Pneumonia due to other Gram-negative bacteria; J15.9 Unspecified bacterial pneumonia; J45.901 Unspecified asthma with (acute) exacerbation; Z20.822 Contact with and (suspected) exposure to COVID-19; E78.5 Hyperlipidemia, unspecified; M81.0 Age-related osteoporosis without current pathological fracture; K59.00 Constipation, unspecified; K21.9 Gastro-esophageal reflux disease without esophagitis; M19.09 Primary osteoarthritis, other specified site; E66.9 Obesity, unspecified; E11.9 Type 2 diabetes mellitus without complications; I10 Essential (primary) hypertension; Z90.49 Acquired absence of other specified parts of digestive tract; Z88.1 Allergy status to other antibiotic agents; Z82.49 Family history of ischemic heart disease and other diseases of the circulatory system; Z82.0 Family history of epilepsy and other diseases of the nervous system; Z79.82 Long term (current) use of aspirin; Z79.899 Other long term (current) drug therapy; Z68.34 Body mass index [BMI] 34.0-34.9, adult
CPT/HCPCS: 36415; 71046; 78452; 80048; 80061; 80307; 81001; 82306; 83036; 83880; 84484; 85025; 87426; 87804; 93005; 93017; 93306; 94640; 94644; 96374; 97116; 97163; 97530; 99291; G0378